=== PATIENT | female | born 1935 | race Caucasian/White ===

== ENCOUNTER 2020-10-23 17:37 | Inpatient (IN) | payer MEDICARE, OTHER ==
[2020-10-23] MEDS ORDERED: Haloperidol Lactate 5 MG/ML VIAL ONE (18:15)
[2020-10-23 18:56] LABS: #Basophils 0.1 thou/uL (0.0-0.2); #Eosinphils 0.7 thou/uL (0.0-0.7); #Lymphocytes 2.5 thou/uL (1.20-3.40); #Monocytes 0.6 thou/uL (0.11-0.59); #Neutrophils 3.7 thou/uL (1.40-6.50); %Basophils 0.7 % (0.0-1.0); %Eosinophils 9.9 % (0.0-10.0); %Lymphocytes 33.1 % (21.0-51.0); %Monocytes 7.5 % (0.0-10.0); %Neutrophils 48.9 % (42.0-75.0); Hemoglobin 14.1 g/dL (12.0-16.0); Mean Corpuscular HGB CONC 32.4 g/dL (32.0-36.0); Mean Platelet Volume 11.1 fL (7.4-10.4); Platelet Count 159 thou/uL (130-400); RBC Distribution Width 12.4 % (11.5-14.5); Red Blood Cell (RBC) Count 4.14 mill/uL (4.20-5.40); White Blood Cell (WBC) Count 7.5 thou/uL (4.8-10.8)
[2020-10-23 19:04] LABS: INR-International Normal Ratio 1.3; PTT 23.2 sec (22.9-36.1); Prothrombin Time 16.2 sec (12.0-14.7)
[2020-10-23 19:12] LABS: Large Platelets SLIGHT; MDiff Complete? YES; Macrocytosis SLIGHT = 6-15 cells (100X) (0-5/hpf); Platelet Morphology Comment Appears Adequate; Polychromasia SLIGHT = 2-3 cells (100X) (0-2/hpf)
--- NOTE | 2020-10-23 19:13 | RAD ---
Exam: Chest one view HISTORY:Nausea and vomiting. Comparison: 03/07/2020 FINDINGS: Cardiac silhouette: Normal Aorta: Mildly elongated Pulmonary vessels: Normal Costophrenic angles: Clear LUNGS: No masses or consolidation. There are chronic changes. Pneumothorax: None Osseous abnormalities: None IMPRESSION: No acute cardiopulmonary process.
[2020-10-23 19:18] LABS: ALT (SGPT) 102 U/L (8-55); AST (SGOT) 53 U/L (5-34); Albumin 3.7 g/dL (3.4-4.8); Alkaline Phosphatase 95 U/L (40-110); Anion Gap 19 mmol/L (10-20); BUN (Urea Nitrogen) 58 mg/dL (9.8-20.1); Bilirubin, Total 0.9 mg/dL (0.2-1.2); CK (CPK) 50 U/L (29-168); Calc. Creatinine Clearance 0 mL/min (70-130); Calcium 9.4 mg/dL (7.8-10.44); Carbon Dioxide 22 mmol/L (23-31); Chloride 122 mmol/L (98-107); Globulin 3.8 g/dL (2.4-3.5); Glucose 87 mg/dL (83-110); Lipase 52 U/L (8-78); Potassium 3.8 mmol/L (3.5-5.1); Protein, Total 7.5 g/dL (5.8-8.1); Sodium 159 mmol/L (136-145)
--- NOTE | 2020-10-23 19:59 | PDOC.FPRHP ---
- History of Present Illness Chief Complaint: GI bleed History of Present Illness: Pt is an 84 yo female with PMH significant for pseudobulbar affect, malnutrition, hypothyroid, HLD who presents to the ED for a GI bleed. Noted for the first time by nurses this evening. Pt was found to have a dark BM in diaper. She does not take blood thinners. She resides at [facility]. I was unable to contact her daughter, Le William. Staff at [facility] noted patient have a decline in the last 6 weeks. She has tolerated less PO intake. They are also unsure if she has history of a GI bleed or diverticular disease. She is currently DNR but not on hospice. Unable to gather any information due to dementia. She is AAO x 1 to person. She also received haldol in the ED. ED Course: 1 L NS, haldol 5 mg, protonix 40 mg IV - Allergies/Adverse Reactions Allergies Allergy/AdvReac Type Severity Reaction Status Date / Time No Known Drug Allergies Allergy Verified 08/25/14 00:48 - Home Medications Medication Instructions Recorded Confirmed Type Donepezil HCl [Aricept] 10 mg PO HS 08/24/14 10/23/20 History Dextromethorphan Hbr/Quinidine 1 cap PO BID 10/23/20 10/23/20 History [Nuedexta] Melatonin 3 mg PO HS 10/23/20 10/23/20 History - History PMHx: pseudobulbar affect, malnutrition, hypothyroid, HLD, Contracture R hand, idiopathic peripheral autonomic neuropathy, herpes zoster, osteoporosis PSHx: n/a FHx: n/a Social: Lives at [facility] - Review of Systems ROS unobtainable: due to mental status - Vital signs BP: 100/66 HR: 89 RR: 18 Tmax: 96.4 Pox: 99% on RA Wt: 62 kg - Physical Exam Constitutional: NAD HEENT: PERRLA, EOMI Neck: FROM, no JVD Heart: RRR, normal S1/S2, no edema Lungs: CTAB, no respiratory distress, no wheezing Abdomen: soft, non-tender, bowel sounds present, no masses/distention -Abdomen: rectal exam: melena noted, did not appreciate significant internal/external hemorrhoids although patient did not tolerate exam well -Musculoskeletal: pt unable to participate in exam -Neurological: pt unable to participate in exam Skin: no rash/lesions, no jaundice Heme/Lymphatic: no purpura, no petechia FMR H&P: Results - Labs Result Diagrams: 10/23/20 18:25 10/23/20 18:25 Lab results: WBC 7.5 thou/uL (4.8-10.8) 10/23/20 18:25 Hgb 14.1 g/dL (12.0-16.0) 10/23/20 18:25 Hct 43.4 % (36.0-47.0) 10/23/20 18:25 MCV 105.0 fL (78.0-98.0) H 10/23/20 18:25 Plt Count 159 thou/uL (130-400) 10/23/20 18:25 Neutrophils % 48.9 % (42.0-75.0) 10/23/20 18:25 Sodium 159 mmol/L (136-145) H 10/23/20 18:25 Potassium 3.8 mmol/L (3.5-5.1) 10/23/20 18:25 Chloride 122 mmol/L (98-107) H 10/23/20 18:25 Carbon Dioxide 22 mmol/L (23-31) L 10/23/20 18:25 BUN 58 mg/dL (9.8-20.1) H 10/23/20 18:25 Creatinine 1.81 mg/dL (0.6-1.1) H 10/23/20 18:25 Glucose 87 mg/dL (83-110) 10/23/20 18:25 Calcium 9.4 mg/dL (7.8-10.44) 10/23/20 18:25 Total Bilirubin 0.9 mg/dL (0.2-1.2) 10/23/20 18:25 AST 53 U/L (5-34) H 10/23/20 18:25 ALT 102 U/L (8-55) H 10/23/20 18:25 Alkaline Phosphatase 95 U/L (40-110) 10/23/20 18:25 Creatine Kinase 50 U/L (29-168) 10/23/20 18:25 B-Natriuretic Peptide 37.3 pg/mL (0-100) 10/23/20 18:25 Serum Total Protein 7.5 g/dL (5.8-8.1) 10/23/20 18:25 Albumin 3.7 g/dL (3.4-4.8) 10/23/20 18:25 Lipase 52 U/L (8-78) 10/23/20 18:25 - EKG Interpretation EKG: NSR, QT prolongation - Radiology Interpretation Chest x-ray Status: image reviewed by me, report reviewed by me Additional comment: no acute abnormalities FMR H&P: A/P - Plan Pt is an 84 yo female here for: # GI Bleed Melena noted on exam Hgb 14.1. Hemodynamically stable. No currently on blood thinners. Unsure of last colonoscopy. No hx of GI bleed apparent at this this time. Unable to reach daughter. - consult GI in am - repeat H/H with am blood work. - monitor for hemodynamic instability - protonix 40 mg BID, received dose in ED - NPO at midnight # Hypernatremia Pt has poor PO intake. Steady decline over 6 weeks per residential. Free water deficit is 3.8 L. She does have history of diastolic HF. - start 1/2 NS 100 mls/hr - recheck BMP in 4-6 hours # COLTEN, BUN:Crea > 20 - likely pre-renal 2/2 poor PO intake and should improve with fluids - elevated BUN could indicate UGI bleed # Hx of Protein Calorie Malnutrition # Recent Decline in setting Alzheimer's - consult palliative - discuss care with daughter and consider hospice - continue home meds # Diastolic HF - I&O's # QT Prolongation - monitor on tele, pt received haldol in ED # Pseudobulbar Affect - continue home meds # Hypothyroid - not currently on medication Fluids: 1/2 NS 100 mls/hr Diet: NPO midnight VTE: SCD's Code: DNR Dispo: admit to inpatient FMR H&P: Upper Level - Plan Date/Time: 10/23/201957 I, [], have evaluated this patient and agree with findings/plan as outlined by agriculture internship resident. Pertinent changes/additions are listed here.
[2020-10-23] MEDS ORDERED: Pantoprazole 40 MG VIAL ONE (20:55)
[2020-10-23] MEDS ORDERED: Ondansetron ODT 4 MG TAB SL PRN (22:45)
[2020-10-23] MEDS ORDERED: Pantoprazole 80 MG, Admixture Fee 1 EACH in Sodium Chloride 0.9% 100 ML IVPB SCH (22:45)
[2020-10-23] MEDS ORDERED: Ondansetron PF 4 MG/2 ML Vial IVP PRN (22:45)
[2020-10-24] MEDS: D5 1/2 NS w/20 mEq KCL 1,000 ML IV SCH ×3 (01:15→22:56)
[2020-10-24] MEDS: Dextrose 5 %-0.45 % NaCl 1,000 ML IV SCH ×2 (01:19→10:18)
[2020-10-24 05:08] LABS: Band 5 % (5-11); Eosinophils 13 % (0-10); Hemoglobin 12.9 g/dL (12.0-16.0); Lymphocytes 29 % (21-51); MDiff Complete? YES; Mean Corpuscular HGB CONC 32.9 g/dL (32.0-36.0); Mean Corpuscular Hemoglobin 34.4 pg (27.0-31.0); Mean Platelet Volume 10.9 fL (7.4-10.4); Monocytes 5 % (0-10); Neutrophil 46 % (42-75); Platelet Count 136 thou/uL (130-400); RBC Distribution Width 12.4 % (11.5-14.5); Red Blood Cell (RBC) Count 3.75 mill/uL (4.20-5.40); White Blood Cell (WBC) Count 6.2 thou/uL (4.8-10.8)
[2020-10-24 05:12] LABS: Anion Gap 14 mmol/L (10-20); BUN (Urea Nitrogen) 51 mg/dL (9.8-20.1); Calc. Creatinine Clearance 25 mL/min (70-130); Calcium 8.7 mg/dL (7.8-10.44); Carbon Dioxide 22 mmol/L (23-31); Glucose 85 mg/dL (83-110); Potassium 3.6 mmol/L (3.5-5.1); Sodium 160 mmol/L (136-145)
[2020-10-24 05:17] LABS: Chloride 128 mmol/L (98-107)
--- NOTE | 2020-10-24 07:04 | PDOC.FM ---
- Subjective Subjective: Patient nonverbal this morning and easily agitated by physical exam. My understanding is patient has severe dementia and this has been her baseline lately. - Objective Vital Signs & Weight: Vital Signs (12 hours) Temp Pulse Resp BP Pulse Ox 10/24/20 03:53 97.8 F 90 18 100/52 L 97 10/23/20 22:15 98.3 F 97 13 110/58 L 97 Weight Weight 58 kg Result Diagrams: 10/24/20 04:19 10/24/20 04:19 EKG Reviewed by me: Yes (tele: SR 80-90s) Phys Exam - Physical Examination Constitutional: NAD HEENT: sclera anicteric dry mucous membranes Neck: no nodes Respiratory: no wheezing, clear to auscultation bilateral Cardiovascular: RRR, no significant murmur Gastrointestinal: soft, non-tender Musculoskeletal: pulses present contractures in lower and upper extremities nonverbal Skin: no rash Dx/Plan - Plan Plan: Pt is an 84 yo female here for: # GI Bleed Melena noted on exam Hgb 14.1, 12.9 - Hemodynamically stable. No currently on blood thinners. Unsure of last colonoscopy. No hx of GI bleed apparent at this this time. - repeat H/H with am blood work. - monitor for hemodynamic instability - protonix 40 mg BID, received dose in ED - NPO at midnight # Hypernatremia Pt has poor PO intake. Steady decline over 6 weeks per longterm. Free water deficit is 3.8 L. She does have history of diastolic HF. - start 1/2 NS 100 mls/hr. Received 1L NS in ED. - Na 159, 160 - Will recheck BMP at noon. If no improvement in Na level will switch to D5W. # COLTEN, BUN:Crea > 20 - likely pre-renal 2/2 poor PO intake and should improve with fluids - elevated BUN could indicate UGI bleed # Hx of Protein Calorie Malnutrition # Recent Decline in setting Alzheimer's - consult palliative - discuss care with daughter and consider hospice - continue home meds # Diastolic HF - I&O's # QT Prolongation - monitor on tele, pt received haldol in ED # Pseudobulbar Affect - continue home meds # Hypothyroid - not currently on medication Fluids: 1/2 NS 100 mls/hr Diet: NPO midnight VTE: SCD's Code: DNR Dispo: Will attempt to contact daughter today and ask if they would prefer Hospice care before consulted GI as patient is currently hemodynamically stable and Hgb is 12.9. Continue to treat hypernatremia.
[2020-10-24] MEDS: Pantoprazole 40 MG VIAL IVP SCH ×2 (09:48→20:24)
--- NOTE | 2020-10-24 10:35 | PDOC.BPN ---
- Brief Progress Note Spoke with daughter, Maria Ines. She does not desire to have EGD or colonoscopy performed to work up GI bleed. Agreed with continuing PPI at this time and treating hypernatremia.
--- NOTE | 2020-10-24 10:46 | HP ---
Please see the history and physical done by Dr. Parth Frank as well as the daily progress note from 10/[address] Elder Pina for which I agree. The patient was seen, evaluated, discussed, and examined with the residents by bedside. HISTORY OF PRESENT ILLNESS: An 84-year-old with severe dementia from pseudobulbar affect issues, malnutrition, hypothyroidism, who presented with obvious melena in the detention setting and so is brought over for evaluation. Found to have hypernatremia as well and is currently on IV fluids for that, sounds like pretty significant malnutrition recently and just overall major decline in her p.o. intake and things like that. ALLERGIES: ALL PER THE RESIDENT'S HISTORY AND PHYSICAL FOR WHICH I AGREE. HOME MEDICATIONS: All per the resident's history and physical for which I agree. PAST MEDICAL HISTORY: All per the resident's history and physical for which I agree. SOCIAL HISTORY: All per the resident's history and physical for which I agree. REVIEW OF SYSTEMS: All per the resident's history and physical for which I agree. PHYSICAL EXAMINATION: VITAL SIGNS: Blood pressure normal. Afebrile. Breathing comfortably. GENERAL: Clearly demented. She is very contracted with her hips flexed and knees flexed. ENT: Conjunctivae not particularly pale. Slightly dry mucosa. CHEST: Clear. HEART: Regular rate and rhythm. ABDOMEN: Benign. EXTREMITIES: No edema. LABORATORY DATA: Initial blood workup, hemoglobin is 14.1. Creatinine was 1.81, not sure if we know baseline. Sodium is high at 159. ASSESSMENT AND PLAN: 1. Gastrointestinal bleed. We will watch hemoglobin closely, put her on proton pump inhibitor. With it being more melena, I assume more of an upper GI bleed and may just need a proton pump inhibitor. We will discuss with family the possibility of hospice care. With malnutrition, she may end up needing a G-tube as well but will talk to family. At this point in time, certainly if she has a lower GI lesion such as a colon cancer or bleeding diverticula, I am not going to do much unless she is so actively bleeding that she needs to be cauterized. I am not sure the benefit of getting an EGD and a colonoscopy in her unless she is actively bleeding and family wants to proceed with that. Otherwise, may consider just a proton pump inhibitor watching her hemoglobin closely and if it is stable, probably will be able to go back to the detention where she came from. 2. Hypernatremia, starting half-normal saline and watching her sodium. 3. Acute kidney injury likely from dehydration and poor p.o. intake. We will monitor her creatinine closely. Job ID: [id number]
[2020-10-24 14:08] LABS: Anion Gap 12 mmol/L (10-20); BUN (Urea Nitrogen) 43 mg/dL (9.8-20.1); Calc. Creatinine Clearance 26 mL/min (70-130); Calcium 7.8 mg/dL (7.8-10.44); Carbon Dioxide 23 mmol/L (23-31); Chloride 121 mmol/L (98-107); Glucose 97 mg/dL (83-110); Potassium 4.2 mmol/L (3.5-5.1); Sodium 152 mmol/L (136-145)
[2020-10-25] MEDS ORDERED: D5 1/2 NS w/20 mEq KCL 1,000 ML BAG ONE (08:06)
[2020-10-25] MEDS ORDERED: Pantoprazole 40 MG VIAL ONE (08:06)
[2020-10-25] MEDS: D5 1/2 NS w/20 mEq KCL 1,000 ML IV SCH (15:01)
[2020-10-25 15:04] LABS: Anion Gap 13 mmol/L (10-20); BUN (Urea Nitrogen) 34 mg/dL (9.8-20.1); Calc. Creatinine Clearance 30 mL/min (70-130); Carbon Dioxide 16 mmol/L (23-31); Chloride 126 mmol/L (98-107); Glucose 80 mg/dL (83-110); Potassium 4.1 mmol/L (3.5-5.1); Sodium 151 mmol/L (136-145)
[2020-10-25] MEDS: Pantoprazole 40 MG VIAL IVP SCH ×2 (15:11→22:17)
[2020-10-25] MEDS ORDERED: hydrOXYzine 10 MG TAB PO SCH (16:30)
--- NOTE | 2020-10-25 18:13 | PDOC.BPN ---
- Brief Progress Note Encounter Date: 10/25/20 Encounter Time: 18:00 This is a brief progress note for 10/25/20. Mrs. William was placed in soft restraints overnight d/t combativeness. Her Na was 151 today. Given her end-stage dementia and resultant decreased PO intake, her hypernatremia is likely 2/2 dehydration/starvation. Her Cl and HCO3 indicate a metabolic acidosis that is also likely 2/2 starvation. I spoke to her daughter and [facility] about the futility of fixing these lab values in the hospital, do her fluids have been d/c. She has agreed that as long as it is not causing her pain, she wants no intervention and is okay with her going back to [facility]. Her daughter is aware the pt has end-stage dementia and has a hospice team in mind that she intends to use. Mrs. William is cleared for d/c from a medical standpoint, but has to be free of restraints for 24hrs to do so, so they were removed this afternoon and will not be used again unless absolutely necessary. See paper chart for more details.
[2020-10-25 20:00] LABS: Band 22 % (5-11); Eosinophils 17 % (0-10); Hemoglobin 11.6 g/dL (12.0-16.0); Large Platelets SLIGHT; Lymphocytes 10 % (21-51); MDiff Complete? YES; Macrocytosis SLIGHT = 6-15 cells (100X) (0-5/hpf); Mean Corpuscular HGB CONC 31.7 g/dL (32.0-36.0); Mean Corpuscular Hemoglobin 33.8 pg (27.0-31.0); Mean Platelet Volume 11.4 fL (7.4-10.4); Monocytes 9 % (0-10); Neutrophil 34 % (42-75); Platelet Count 115 thou/uL (130-400); Platelet Morphology Comment Appears Decreased; RBC Distribution Width 12.5 % (11.5-14.5); Reactive Lymphocytes 8 % (0-10); Red Blood Cell (RBC) Count 3.43 mill/uL (4.20-5.40); White Blood Cell (WBC) Count 6.5 thou/uL (4.8-10.8)
[2020-10-26 03:29] LABS: #Eosinphils 0.8 thou/uL (0.0-0.7); #Lymphocytes 1.4 thou/uL (1.20-3.40); #Monocytes 0.5 thou/uL (0.11-0.59); #Neutrophils 4.9 thou/uL (1.40-6.50); %Basophils 0.2 % (0.0-1.0); %Eosinophils 10.6 % (0.0-10.0); %Lymphocytes 17.8 % (21.0-51.0); %Monocytes 6.9 % (0.0-10.0); %Neutrophils 64.5 % (42.0-75.0); Hemoglobin 12.7 g/dL (12.0-16.0); Mean Corpuscular HGB CONC 32.6 g/dL (32.0-36.0); Mean Corpuscular Hemoglobin 34.2 pg (27.0-31.0); Mean Platelet Volume 10.7 fL (7.4-10.4); Platelet Count 125 thou/uL (130-400); RBC Distribution Width 12.3 % (11.5-14.5); Red Blood Cell (RBC) Count 3.72 mill/uL (4.20-5.40); White Blood Cell (WBC) Count 7.5 thou/uL (4.8-10.8)
[2020-10-26 03:50] LABS: Anion Gap 12 mmol/L (10-20); BUN (Urea Nitrogen) 23 mg/dL (9.8-20.1); Calc. Creatinine Clearance 33 mL/min (70-130); Calcium 8.6 mg/dL (7.8-10.44); Carbon Dioxide 21 mmol/L (23-31); Chloride 123 mmol/L (98-107); Glucose 77 mg/dL (83-110); Potassium 3.4 mmol/L (3.5-5.1); Sodium 153 mmol/L (136-145)
--- NOTE | 2020-10-26 07:00 | PDOC.FM ---
- Subjective Subjective: Mrs. William was sleeping comfortably this am, without restraints on. - Objective Vital Signs & Weight: Vital Signs (12 hours) Temp Pulse Resp BP Pulse Ox 10/26/20 03:37 98.2 F 91 16 109/67 97 10/26/20 00:00 80 16 110/78 10/25/20 19:55 97.6 F 80 18 166/73 H 95 Weight Weight 58 kg I&O: 10/24/20 10/25/20 10/26/20 06:59 06:59 06:59 Intake Total 60 Balance 60 Result Diagrams: 10/26/20 03:07 10/26/20 03:07 Phys Exam - Physical Examination Constitutional: NAD Neck: supple Dx/Plan - Plan Plan: Pt is an 84 yo female here for: GI Bleed - Hemodynamically stable - Pt DNAR and daughter, AICHA, has elected to refrain from intervention per pt's wishes. Daughter aware ddx includes gastric ulcer, diverticulosis, cancer. Wants only interventions that prevent/improve pain * Has a hospice team in mind. Okay with pt being d/c back to NH - protonix 40 mg BID to treat possible gastric ulcer and inhibit it's pain - Regular diet, puree thick with thin liquids with aspiration risk. Per UTILITIES OPERATOR recs. Daughter agreed. End-stage Alzheimer's dementia - consult palliative - discussed care with daughter, as above. Desires only interventions that prevent pain. - combative with nursing when touched. Required restraints on night of 10/24. Must d/c for 24hrs prior to return to NH. Have instructed nursing staff to avoid restraints at all costs and to interact with pt only when needed, i.e. brief changes. - Labs d/c, IVF d/c, VSS therefore checks only once daily Hypernatremia - 2/2 poor PO intake from end-stage dementia - Discussed futility of treating in hospital as it will recur in NH. Daughter understands and is okay with d/c interventions as this will not cause the pt pain - D5 1/2NS d/c on 10/25 COLTEN, BUN:Crea > 20 - likely pre-renal 2/2 poor PO intake - elevated BUN could indicate UGI bleed Hx of Protein Calorie Malnutrition Diastolic HF - I&O's QT Prolongation - monitor on tele, pt received haldol in ED Pseudobulbar Affect - continue home meds Hypothyroid - not currently on medication Fluids: SL Diet: Regular with UTILITIES OPERATOR specifications, as above VTE: SCD's Code: DNAR Dispo: D/c to [facility] pending d/c of soft restraints for 24hrs Addendum - Attending - Attending Attestation Date/Time: 10/26/20 0893 I personally evaluated the patient and discussed the management with Dr. Scott Cunningham. I agree with the History, Examination, Assessment and Plan documented above with any addition or exceptions noted below. Unfortunately had restraints placed on last night. No agitation on my exam. Educate nursing and monitor. Xfer from tele.
[2020-10-26] MEDS: Pantoprazole 40 MG VIAL IVP SCH ×2 (09:35→20:43)
[2020-10-26 14:14] VITALS: BMI 18.8
--- NOTE | 2020-10-26 15:26 | PQF ---
CLINICAL DOCUMENTATION CLARIFICATION FORM: Dear Dr. LATONYA AKINS Date: 10-26-20 Please exercise your independent, professional judgment in responding to the clarification form. Clinical indicators are provided on the bottom of this form for your review. Please check appropriate box(es): [ X ] Protein Calorie Malnutrition: [ ] Mild [ ] Moderate [ ] Severe [ ] Other Malnutrition (please specify) [ ] Other diagnosis [ ] Unable to determine In addition, please specify: Present on Admission (POA): [ X ] Yes [ ] No [ ] Unable to determine For continuity of documentation, please document condition throughout progress notes and discharge summary. Thank You. To be completed by CDI/Coding staff for physician review: CLINICAL INDICATORS - SIGNS / SYMPTOMS / LABS / RESULTS AND LOCATION IN MR: ER DX: 10-23-20: LGIB, DEMENTIA, DNR, HYPERNATREMIA H&P 10-23-20: PATIENT HAVE A DECLINE IN THE PAST 6 WEEKS, SHE HAS TOLERATED LESS PO INTAKE. UNABLE TO GATHER ANY INFORMATION DUE TO DEMENTIA, HX OF MALNUTRITION, OSTEOPOROSIS, PSEUDOBULBAR AFFECT, HX OF PROTEIN CALORIE MALNUTRITION H&P DR. LIANG 10-24-20: MALNUTRITION, FROM CORRECTION, FOUND TO HAVE HYPERNATREMIA WELL AND IS CURRENTLY ON IV FLUIDS FOR THAT, SOUNDS LIKE PRETTY SIGNIFICANT MALNUTRITION RECENTLY AND JUST OVERALL MAJOR DECLINE IN HER PO INTAKE AND THINGS LIKE THAT. HEALTH POLICY NURSE CONSULT 10-26-20: Pt refusing all but one meal of which she ate 25%. Per skilled nursing, Pt has been declining in the past 6 weeks and PO intake has also declined. RISK FACTORS / RESULTS AND LOCATION IN MR: H&P DR. LIANG 10-24-20: MALNUTRITION, FROM CORRECTION, FOUND TO HAVE HYPERNATREMIA WELL AND IS CURRENTLY ON IV FLUIDS FOR THAT, SOUNDS LIKE PRETTY SIGNIFICANT MALNUTRITION RECENTLY AND JUST OVERALL MAJOR DECLINE IN HER PO INTAKE AND THINGS LIKE THAT. TREATMENT / RESULTS AND LOCATION IN MR: HEALTH POLICY NURSE CONSULT 10-26-20: 1. Continue Regular diet with textures/consistencies per GAS PLANT OPERATOR. 2. Can supplement diet with ensure enlive TID or Mighty shakes TID on trays. 3. If GOC change, RD is available for nutrition support recommendations. Pt would highly benefit from nutrition support. 4. Bowel regimen/anti-emetics prn. 5. Replete electrolytes prn. Moderate Malnutrition (in acute illness) Energy Intake: <75% of estimated energy requirement for > 7 days Weight Loss: 1-2%/1 week; 5%/ 1 month; 7.5%/3 months Other: mild body fat loss; mild muscle mass loss; mild fluid accumulation; Severe Malnutrition (in acute illness) Energy Intake: = 50% of estimated energy requirement for = 5 days Weight Loss: >2%/1 week; >5%/1 month; >7.5%/3 months Other: moderate body fat loss; moderate muscle mass loss; moderate- severe fluid accumulation; measurably reduced utility appraiser strength Moderate Malnutrition (in chronic illness) Energy Intake: <75% of estimated energy requirement for =1 month Weight Loss: 5%/1 month; 7.5%/3 months; 10%/6 months; 20%/1 year Other: mild body fat loss; mild muscle mass loss; mild fluid accumulation Severe Malnutrition (in chronic illness) Energy Intake: =75% of estimated energy requirement for =1 month Weight Loss: >5%/1 month; >7.5%/3 months; >10%/6 months; >20%/1 year Other: severe body fat loss; severe muscle mass loss; severe fluid accumulation; measurably reduced utility appraiser strength CDS Signature: Leesa Andra Phone #: [phone] Date: 10-26-20 This is a permanent part of the Medical Record [facility]
--- NOTE | 2020-10-26 18:58 | RAD ---
PORTABLE CHEST: History: Fever FINDINGS: Lungs appear clear and well aerated. No infiltrate or vascular congestion. Heart and medias tinum unremarkable. IMPRESSION: No acute process. POS: AGW
[2020-10-26] MEDS: Acetaminophen 325 MG Suppository PR PRN (19:16)
[2020-10-26 22:10] LABS: Bacteria/HPF 4+ HPF (None Seen); Bilirubin Negative (Negative); Blood, Urine 1+ (Negative); Clarity Extra Turbid (Clear); Glucose, Urine (Dipstick) Normal (Negative); Ketone, Urine 10 mg/dL (Negative); Leukocyte 500 Leu/uL (Negative); Nitrite Negative (Negative); Protein, Urine (Dipstick) 30 mg/dL (Neg-Trace); Specific Gravity, Urine 1.021 (1.002-1.036); Squamous Epithelial None Seen HPF (0-3); WBC/HPF Greater than 50 HPF (0-3)
[2020-10-26 22:13] LABS: Urine Culture Reflex Yes Yes
[2020-10-26] MEDS ORDERED: cefTRIAXone\\ROCEPHIN 1 GM in Sodium Chloride 0.9% 100 ML IVPB SCH (23:00)
[2020-10-27] MEDS: Acetaminophen 325 MG Suppository PR PRN (01:31)
[2020-10-27] MEDS ORDERED: cefTRIAXone\\ROCEPHIN 1 GM in Sodium Chloride 0.9% 100 ML IVPB SCH (02:00)
[2020-10-27] MEDS ORDERED: hydrOXYzine 10 MG TAB PO PRN (06:59)
--- NOTE | 2020-10-27 07:05 | PDOC.FM ---
- Subjective Subjective: Mrs. William is in no acute distress this morning and was resting comfortably. - Objective Vital Signs & Weight: Vital Signs (12 hours) Temp Pulse Resp BP Pulse Ox 10/27/20 03:59 98.6 F 100 16 120/77 90 L 10/27/20 00:15 100.3 F H 103 H 20 147/76 H 98 10/26/20 21:42 100.4 F H Weight Admit Weight 58 kg Weight 58.967 kg I&O: 10/26/20 10/27/20 10/28/20 06:59 06:59 06:59 Intake Total 240 Balance 240 Result Diagrams: 10/26/20 03:07 10/26/20 03:07 Phys Exam - Physical Examination Constitutional: NAD No resp distress Neurological: moves all 4 limbs Dx/Plan - Plan Plan: Pt is an 84 yo female here for: End-stage Alzheimer's dementia - consulted palliative - discussed care with daughter. Desires only interventions that prevent pain. * Daughter is contacting [facility] whom she has worked with before. CM order also placed to start communications with them - combative with nursing when touched. Required restraints on night of 10/24 and 10/25. Must d/c for 24hrs prior to return to [place]. Pt has been without restraints for ~30hrs at this point. - hydroxyzine 10mg q6h prn. Has been working well so far but can increase dose or escalate to geodon if needed. - Labs d/c, IVF d/c, VSS therefore checks only once daily UTI - Pt febrile on 10/26 - UA from straight cath + for bacteria, leuks, blood - Pt started on Rocephin 10/26 - UCx pending GI Bleed - Hemodynamically stable - Daughter, AICHA, has elected to refrain from intervention per pt's wishes. - Daughter aware ddx includes gastric ulcer, diverticulosis, cancer. Wants only interventions that prevent/improve pain - protonix 40 mg BID to treat possible gastric ulcer and inhibit pt's pain - Regular diet, puree thick with thin liquids with aspiration risk. Per MARKETING ACCOUNT MANAGER recs. Daughter agreed. Hypernatremia - 2/2 poor PO intake from end-stage dementia - Discussed futility of treating in hospital as it will recur. Daughter understands and is okay with d/c interventions as this will not cause the pt pain - D5 1/2NS d/c on 10/25 COLTEN, BUN:Crea > 20 - likely pre-renal 2/2 poor PO intake - elevated BUN could indicate UGI bleed Hx of Protein Calorie Malnutrition Diastolic HF - I&O's QT Prolongation - monitor on tele, pt received haldol in ED Pseudobulbar Affect - continue home meds Hypothyroid - not currently on medication Fluids: SL Diet: Regular with MARKETING ACCOUNT MANAGER specifications, as above VTE: SCD's Code: DNAR Dispo: D/c to [facility] pending available transportation.
[2020-10-27] MEDS: Pantoprazole 40 MG VIAL IVP SCH (08:09)
[2020-10-27 08:14] VITALS: BP 131/70; TEMP 99.2
--- NOTE | 2020-10-27 11:04 | PRG ---
DATE OF SERVICE: 10/27/2020 Ms. William is an 84-year-old white female, who is admitted with melena, indicative course of an upper GI bleed. Her hemoglobin was 14.1, and she was hemodynamically stable. After discussion with family, no aggressive measures such as endoscopy, etc. were undertaken. I would suggest we go ahead and check an H pylori and if applicable, add antibiotics to her Protonix PPI. In the event, she has not demonstrated any evidence of an acute significant bleed. This morning's, was 12.7, which is fairly consistent over the last several days. Job ID: [id number]
[2020-10-27] MEDS ORDERED: Sulfameth/Trimethoprim DS 800-160mg TAB PO SCH (21:00)
--- NOTE | 2020-10-28 05:34 | PQF ---
CLINICAL DOCUMENTATION CLARIFICATION FORM: Dear : Eduin Hays Date / Time: 10/28/2020 Please exercise your independent, professional judgment in responding to the clarification form. Clinical indicators are provided on the bottom of this form for your review In your clinical opinion based on clinical findings below, can you please identify the etiology of GI bleeding if due to: Please check appropriate box(es): [ ] Gastric Ulcer [ ] Diverticulosis [ ] Other diagnosis, please specify: [ ] Unable to determine Physician Signature: Date/Time: For continuity of documentation, please document condition throughout progress notes and discharge summary. Thank You. To be completed by CDI/Coding staff for physician review: Present Clinical Indicators - Signs / Symptoms / Labs Results and Location in Medical Record [x] BP 110/58, Pulse 97, Resp 13, Temp 98.3 Vital signs 10/23 [x] RBC 4.14, Hgb 14.1, Hct 43.4 Laboratory 10/23 [x] Presents to ED for GI bleed H&P p1 10/23 Dr Frank [x] Melena noted on exam H&P p3 10/23 Dr Frank [x] Ddx includes gastric ulcer, diverticulosis, cancer HPN p2 10/24 Dr Veloz Present Risk Factors Results and Location in Medical Record [x] 84 year-old Female H&P p1 10/23 Dr Frank [x] Malnutrition H&P p1 10/23 Dr Frank Present Treatments Results and Location in Medical Record [x] IV Ceftriaxone Soduim 1 gm NOV 09 [x] IV Protonix 80mg NOV 09 [x] IVF NS 1L NOV 09 CDS/Special Procedure Tech Signature: Betsey Das Phone #: [phone] Date/Time: 10/28/20 This is a permanent part of the Medical Record [facility]
--- NOTE | 2020-10-30 17:31 | EKG ---
Test Reason : Blood Pressure : / mmHG Vent. Rate : 094 BPM Atrial Rate : 094 BPM P-R Int : 154 ms QRS Dur : 088 ms QT Int : 406 ms P-R-T Axes : 075 -61 072 degrees QTc Int : 507 ms Normal sinus rhythm Left anterior fascicular block Septal infarct , age undetermined Lateral infarct , age undetermined Prolonged QT Abnormal ECG Confirmed by ARIS WICK MD ([id number]), content editor NADINE PORRAS ([id number]) on 10/30/2020 5:30:46 PM Referred By: Confirmed By:ARIS WICK MD
== END 2020-10-27 13:51 | disposition hospice, home (50) | DRG 378 ==
LOC: ERS 17:37 → 2NO 19:50 → T4-A 10-27 01:02
PROVIDERS: ADMIT Family Medicine; ATTEND Family Medicine
DX: K92.1 Melena (principal); E87.0 Hyperosmolality and hypernatremia; N17.9 Acute kidney failure, unspecified; I50.32 Chronic diastolic (congestive) heart failure; Z51.5 Encounter for palliative care; Z66 Do not resuscitate; F02.81 Dementia in other diseases classified elsewhere, unspecified severity, with behavioral disturbance; E46 Unspecified protein-calorie malnutrition; Z68.1 Body mass index [BMI] 19.9 or less, adult; N39.0 Urinary tract infection, site not specified; E87.2 Acidosis; G30.9 Alzheimer's disease, unspecified; E03.9 Hypothyroidism, unspecified; E78.5 Hyperlipidemia, unspecified; G90.09 Other idiopathic peripheral autonomic neuropathy; I45.81 Long QT syndrome; F48.2 Pseudobulbar affect; E86.0 Dehydration; Z53.20 Procedure and treatment not carried out because of patient's decision for unspecified reasons; Z90.49 Acquired absence of other specified parts of digestive tract; Z79.899 Other long term (current) drug therapy; Z78.1 Physical restraint status
CPT/HCPCS: 36415; 36416; 71045; 80048; 80053; 81001; 82274; 82550; 83690; 83880; 84484; 85007; 85025; 85027; 85610; 85730; 86850; 86900; 86901; 87040; 87077; 87086; 87186; 87338; 93005; 96372; 96374; C9113; J0696; J1630; J3480; J3490